=== PATIENT | male | born 1980 | race African-American/Black ===

== ENCOUNTER 2020-08-24 19:07 | Emergency (ER) | payer OTHER ==
[2020-08-24 19:16] VITALS: BP 146/85; PULSE 86; TEMP 98.6; BMI 41.5
[2020-08-24] MEDS ORDERED: KETOROLAC TROMETHAMINE 30 MG/1 ML VIAL IM ONE (20:55)
[2020-08-24] MEDS ORDERED: KETOROLAC TROMETHAMINE 30 MG/1 ML VIAL ONE (21:06)
== END 2020-08-24 22:17 | disposition home or self-care (01) ==
LOC: JERFT 19:07
PROC: 3E0233Z Introduction of Anti-inflammatory into Muscle, Percutaneous Approach (ICD-10-PCS; principal; 2020-08-24)
DX: M94.0 Chondrocostal junction syndrome [Tietze] (principal)
CPT/HCPCS: 71046-TC-FY; 71111-TC-FY; 93005; 93010; 99285-25

== ENCOUNTER 2021-04-11 21:29 | Emergency (ER) | payer OTHER ==
[2021-04-11 21:36] VITALS: BMI 29.8
[2021-04-11] MEDS ORDERED: ALBUTEROL SO4 2.5/IPRATROPIUM 0.5 INH SOL 3 ML VIAL.NEB. NEB ONE ×2 (22:20→22:26)
[2021-04-11 23:39] VITALS: BP 145/100; TEMP 98.1
[2021-04-12 00:09] VITALS: PULSE 104
== END 2021-04-12 00:14 | disposition home or self-care (01) ==
LOC: JER 21:29
PROC: 3E0F7GC Introduction of Other Therapeutic Substance into Respiratory Tract, Via Natural or Artificial Opening (ICD-10-PCS; principal; 2021-04-11)
DX: R06.00 Dyspnea, unspecified (principal)
CPT/HCPCS: 71046-TC-FY; 87804; 93005; 93010; 99284-25; C9803; U0003; U0005

== ENCOUNTER 2022-10-15 21:25 | Emergency (ER) | payer OTHER ==
[2022-10-15 21:42] VITALS: TEMP 98.4; BMI 43.4
[2022-10-15 22:16] LABS: BASO % 0.7 % (0-2.0); EOS % 3.7 % (0-4.5); HEMATOCRIT 40.6 % (35.4-49); MCH 29.3 pg (25.7-33.7); MCHC 34.4 g/dl (32.0-35.9); MEAN CELL VOLUME 85.1 fl (80-96); MEAN PLT VOLUME 7.3 fl (7.5-11.1); MONO % 10.2 % (3.8-10.2); NEUT % 54.4 % (42.8-82.8); PLATELET COUNT 240 10^3/uL (134-434); RBC 4.78 M/mm3 (4.00-5.60); RDW 14.8 % (11.9-15.9); WHITE BLOOD COUNT 8.2 K/mm3 (4.0-10.0)
[2022-10-15] MEDS ORDERED: KETOROLAC TROMETHAMINE 15 MG/ML VIAL IVPUSH ONE (22:18)
[2022-10-15] MEDS ORDERED: KETOROLAC TROMETHAMINE 15 MG/ML VIAL ONE (22:20)
[2022-10-15 22:41] LABS: POTASSIUM 3.8 mmol/L (3.5-5.1)
[2022-10-15 22:43] LABS: CALCIUM 9.3 mg/dL (8.5-10.1)
[2022-10-15 22:44] LABS: BLOOD UREA NITROGEN 9.9 mg/dL (7-18)
[2022-10-15 22:47] LABS: CREATININE 1.1 mg/dL (0.55-1.3)
[2022-10-15 22:48] LABS: TOT PROT 7.8 g/dl (6.4-8.2)
[2022-10-15 22:49] LABS: BILIRUBIN,TOTAL 0.5 mg/dL (0.2-1)
[2022-10-16 01:39] VITALS: BP 128/75; PULSE 74; RESP 16
== END 2022-10-16 01:40 | disposition home or self-care (01) ==
LOC: JER 21:25
PROC: 3E033NZ Introduction of Analgesics, Hypnotics, Sedatives into Peripheral Vein, Percutaneous Approach (ICD-10-PCS; principal; 2022-10-15)
DX: R07.9 Chest pain, unspecified (principal)
CPT/HCPCS: 36415; 71046-TC-FY; 80053; 84484; 85025; 93005; 93010; 99285-25